=== PATIENT | female | born 1965 | race Caucasian/White ===

== ENCOUNTER → 2016-11-25 14:07 | Outpatient (CLI) | payer OTHER | END | disposition home or self-care (01) | LOC: D.LABREF 14:07 | DX: E03.9 Hypothyroidism, unspecified (principal) ==

== ENCOUNTER → 2020-01-17 08:07 | Outpatient (CLI) | payer OTHER | END | disposition home or self-care (01) | LOC: D.HCCARDIO 08:07 | PROVIDERS: ATTEND Internal Medicine Cardiovascular Disease | DX: I25.10 Atherosclerotic heart disease of native coronary artery without angina pectoris (principal) ==

== ENCOUNTER 2020-02-08 07:04 | Day surgery (SDC) | payer OTHER ==
[~2020-02-08] VITALS: Ht 162.6 cm; Wt 74.3 kg
--- NOTE | ~2020-02-08 | HEMODYNAMI ---
PATIENT:KACI MARTIN MEDICAL RECORD: [id number] : 67 LOCATION:[facility] ADMISSION DATE: 02/08/20 Generatedon:02/08/202010:07 Patient name: KACI MARTIN Patient #: [id number] SSN: [id number] : 1965 Date of study: 02/08/2020 Page: Of Hemodynamic Procedure Report Patient Data Patient Demographics Procedure consent was obtained First Name: KACI Gender: Female Last Name: VERONICA : 1965 Patient #: [id number] Age: 55 year(s) Race: SSN: [id number] Additional ID: [id number] Contact details Address: [address] [place] [address] State: [place] City: [place] Zip code: [address] Past Medical History Performed procedures and imaging results Date Procedure Procedure Results Comments 01/17/2020 Stress testing Positive->Intermediate with SPECT MPI risk Allergies: No known allergies Admission Admission Data Admission Date: 02/08/2020 Admission Time: 7:04 Arrival Date: 02/08/2020 Arrival Time: 9:00 Admit Source: Other Insurance Payor: Private health insurance [facility] #: [id number] Height (in.): 65 BSA: 1.81 (m2) Height (cm.): 165.1 BMI: 26.96 (kg/m2) Weight (lbs.): 162 Weight (kg.): 73.48 Lab Results Lab Result Date: 02/08/2020 Lab Result Time: 0:00 Biochemistry Name Units Result Min Max BUN mg/dl 12 --(-*--)-- 7 18 Creatinine mg/dl 0.8 --(-*--)-- 0.6 1.3 eGFR ml/min 79.15146 *-(----)-- 90 120 NONAFRICAN CBC Name Units Result Min Max Hematocrit % 45.3 --(-*--)-- 42 54 Hemoglobin g/dl 15.4 --(-*--)-- 13.5 17.5 Procedure Procedure Types Cath Procedure Diagnostic Procedure [facility] w/Coronaries Sedation Charges Moderate Sedation up to 15 minutes Procedure Description Procedure Date Procedure Date: 02/08/2020 Procedure Start Time: 9:50 Procedure End Time: 10:06 Procedure Staff Name Function Brian Go MD Performing Physician Roz Navarrete RT Monitor Malina Barnett RT Scrub Rubin Ibrahim RN Nurse Indication Angina Procedure Data Cath Procedure Fluoroscopy Diagnostic fluoroscopy Total fluoroscopy Time: 2.7 time: 2.7 min min Diagnostic fluoroscopy Total fluoroscopy dose: 461 dose: 461 mGy mGy Contrast Material Contrast Material Type Amount (ml) Isovue 370 50 Entry Location Entry Primary Successful Side Size Upsize Upsize Entry Closure Galloway ccessful Closure Location (Fr) 1 (Fr) 2 (Fr) Remarks Device Remarks Radial Right 6 Fr Mechanical artery Short Compression Estimated blood loss: 5 ml Diagnostic catheters Device Type Used For End Catheter Placement DIAGNOSTIC [place] 110cm 5 Procedure Fr catheter ([id number]) Procedure Complications No complications Procedure Medications Medication Administration Route Dosage Oxygen etCO2 Nasal cannula 2 l/min Lidocaine 2% added to field 20 Heparin Flush Bag added to field 2 bags (1000units/500ml NS) 0.9% NaCl I.V. 100 ml/hr Versed I.V. 1 mg Fentanyl I.V. 50 mcg Radial Cocktail I.A. 1 syringe (Verapamil 2mg/Nitro 400mcg/Heparin 1500units) Versed I.V. 1 mg Fentanyl I.V. 50 mcg Versed I.V. 1 mg Hemodynamics Rest BSA: 1.81 (m2) HGB: 15.4 (g/dl) O2 Consumption: Estimated: 171.52 (ml/min) O2 Co nsumption indexed: Estimated:94.76 (ml/min/m) Heart Rate: 65 (bpm) Pressure Samples Time Site Value (mmHg) Purpose Heart Use Rate(bpm) 9:55 LV 178/25,63 Snapshot 72 Gradients Valve Time Site Site Mean SEP/DFP Peak To Heart Use 1 2 (mmHg) (sec/min) Peak Rate (mmHg) (bpm) Aortic 9:56 LV AO 75 Snapshots Pre Cath Intra NCS Post Cath Vital Signs Time Heart Resp SPO2 etCO2 NIBP (mmHg) Rhythm Pain Sedation Rate (ipm) (%) (mmHg) Status Level (bpm) 9:36:28 69 18 97 38.8 180/100(139) NSR 0 (11) 10(A) , No pain 9:40:46 59 19 98 46.3 159/93(141) NSR 0 (11) 10(A) , No pain 9:45:06 63 13 97 21.7 172/86(137) NSR 0 (11) 10(A) , No pain 9:49:30 61 14 94 0 134/79(112) NSR 0 (11) 9(A) , No pain 9:54:44 67 21 97 46.3 127/77(105) NSR 0 (11) 9(A) , No pain 9:59:49 72 12 95 30.6 140/92(100) NSR 0 (11) 10(A) , No pain 10:04:05 78 15 97 42.6 130/80(113) NSR 0 (11) 10(A) , No pain Medications Time Medication Route Dose Verified Delivered Reason Notes Effectiveness by by 9:44:10 Oxygen etCO2 2 l/min Brian Buffie used for Nasal Donavan Ibrahim RN procedure cannula 9:44:16 Lidocaine 2% added 20ml Brian Brian for local to vial Donavan Go MD anesthetic field 9:44:21 Heparin Flush added 2 bags Brian Brian used for Bag to Donavan Go MD procedure (1000units/500ml field NS) 9:44:30 0.9% NaCl I.V. 100 Brian Buffie Per ml/hr Donavan Ibrahim RN physician 9:44:41 Versed I.V. 1 mg Brian Buffie for sedation Donavan Ibrahim RN 9:44:46 Fentanyl I.V. 50 mcg Brian Buffie for sedation Donavan Ibrahim RN 9:48:14 Versed I.V. 1 mg Brian Brian for sedation Donavan Go MD 9:48:18 Fentanyl I.V. 50 mcg Brian Brian for sedation Donavan Go MD 9:53:07 Radial Cocktail I.A. 1 Brian Brian for (Verapamil syringe Donavan Go MD vasodilation 2mg/Nitro 400mcg/Heparin 1500units) 9:55:52 Versed I.V. 1 mg Brian Brian for sedation Donavan Go MD Procedure Log Time Note 8:57:04 Diagnostic Cath Status : Elective 8:57:26 Indication : Angina 8:57:44 Informed consent obtained and on chart 8:58:32 Admit Source: Other 8:58:36 Arrival Date: 02/08/2020 9:00:00 AM 8:58:58 Insurance Payor : Private health insurance 8:59:07 Patient Height : 65 inches 8:59:14 Patient Weight : 162 lbs 8:59:23 Procedure Status Elective Heart Cath (OP). 8:59:26 Time tracking: Regular hours (M-F 7:00 - 5:00) 8:59:31 Plan of Care:Hemodynamics will remain stable., Cardiac rhythm will remain stable., Comfort level will be maintained., Respiratory function will remain adequate., Patient/ family verbilizes understanding of procedure., Procedure tolerated without complication., Recovers from procedure without complications.. 9:15:27 Patient allergic to No known allergies 9:18:00 Rubin Ibrahim RN sent for patient. Start room use. 9:21:35 Lab Result : BUN 12 mg/dl 9:21:35 Lab Result : eGFR NONAFRICAN 79.58413 ml/min 9:21:35 Lab Result : Hemoglobin 15.4 g/dl 9:21:35 Lab Result : Creatinine 0.8 mg/dl 9:21:35 Lab Result : Hematocrit 45.3 % 9:22:13 Lab results completed and on chart. 9:22:18 Stress Test: yes; abnormal inferior 9:22:20 Alarms reviewed by R. N. 9:22:20 Sharps counted by scrub and verified by R.N. 9:22:33 H&P Date Dictated: 01/09/2020 Within 30 days and on chart.. 9:22:34 Pre-procedure instructions explained to patient. 9:22:35 Pre-op teaching completed and patient verbalized understanding. 9:22:37 Family unavailable. 9:22:38 Patient NPO since Midnight. 9:22:44 ACC Patient presents with Stable Angina CCS Anginal Class 2--Slight limitation of ordinary activity. 9:28:03 Patient received from Pre/Post Procedure Room to [facility] 2 Alert and oriented. Tansferred to table in Supine position. 9:28:04 Warm blankets applied, and sean hugger turned on for patient comfort. 9:28:05 Correct patient and procedure confirmed by team. 9:28:06 ECG and BP/O2 sat monitors applied to patient. 9:28:12 Is the patient allergic to Iodine/contrast media? No. 9:28:14 Was the patient premedicated? N/A 9:28:16 Is patient on blood thinner?No 9:28:18 Patient diabetic? Yes. 9:28:19 If diabetic: On Metformin? Yes 9:28:23 If on Metformin: Last Dose? 02/06/2020 9:28:58 Patient not . Patient has had hysterectomy. 9:29:03 ----Pre-sedation anethsthesia assessment.---- 9:29:08 Previous problem with sedation/anesthesia? No ? 9:29:09 Snore? Yes 9:29:10 Sleep apnea? Unknown 9:29:12 Deviated septum? No 9:29:13 Opens mouth fully? Yes 9:29:14 Sticks out tongue? Yes 9:29:15 Airway obstruction? No ? 9:29:17 Dentures? No ? 9:29:20 Patient pain scale 0/10 ?. 9:29:26 IV patent on arrival in left antecubital with 0.9% NaCl at O. 9:29:30 Pre procedure: right dorsailis pedis pulse 2+ Normal; easily identifiable; not easily obliterated 9:29:36 Full Disclosure recording started 9:32:55 Use device set Radial Dx or PCI 9:32:57 ACIST Syringe (87235) opened to sterile field. 9:32:58 Bag Decanter () opened to sterile field. 9:32:58 ACIST Hand Control (31493) opened to sterile field. 9:32:59 ACIST Manifold (20106) opened to sterile field. 9:32:59 Tegaderm 4 x 4 (1626W) opened to sterile field. 9:33:01 Medline Cath Pack ([id number]) opened to sterile field. 9:33:01 MBrace Wrist Support ([id number]) opened to sterile field. 9:33:02 NEEDLE Cook 21G 4cm Radial (L97438) opened to sterile field. 9:33:03 EMERALD Guide Wire (289-915) opened to sterile field. 9:33:03 SHEATH 6FR RAIN (0156565) opened to sterile field. 9:35:20 Vital chart was started 9:35:25 Rhythm: sinus rhythm 9:36:05 Right Radial & Right Groin area was prepped with chlora-prep and draped in sterile fashion 9:36:15 Baseline sample Acquired. 9:38:26 Modified Shamar's test Ulnar < 7 seconds 9:42:08 --------ALL STOP TIME OUT------ :42:08 Final Timeout: patient, procedure, and site verified with staff and physician. All members of the team are in agreement. 9:42:10 Right Radial & Right Groin site verified by team. 9:42:14 Fire Safety Assessment: A--An alcohol-based skin anteseptic being used preoperatively., C--Open oxygen or nitrous oxide is being used., D--An ESU, laser, or fiber-optic light is being used. 9:42:17 Physical assessment completed. ASA score P 2 - A patient with mild systemic disease as per Brian Go MD. 9:42:22 2) 60-89 Mildly reduced kidney function, and other findings (as for stage 1) point to kidney disease. 9:42:25 Maximum allowable contrast dose (3.7 X eGFR X 0.75)219 ml. 9:42:30 Sedation plan: IV Moderate Sedation Medication:Versed, Fentanyl 9:44:10 Oxygen 2 l/min etCO2 Nasal cannula was administered by Rubin Ibrahim RN; used for procedure; Verbal order read back and verified. 9:44:16 Lidocaine 2% 20ml vial added to field was administered by Brian Go MD; for local anesthetic; Verbal order read back and verified. 9:44:21 Heparin Flush Bag (1000units/500ml NS) 2 bags added to field was administered by Brian Go MD; used for procedure; Verbal order read back and verified. 9:44:30 0.9% NaCl 100 ml/hr I.V. was administered by Rubin Ibrahim RN; Per physician; Verbal order read back and verified. 9:44:41 Versed 1 mg I.V. was administered by Rubin Ibrahim RN; for sedation; Verbal order read back and verified. 9:44:46 Fentanyl 50 mcg I.V. was administered by Buffie Ibrahim RN; for sedation; Verbal order read back and verified. 9:48:14 Versed 1 mg I.V. was administered by Brian Go MD; for sedation; Verbal order read back and verified. 9:48:18 Fentanyl 50 mcg I.V. was administered by Brian Go MD; for sedation; Verbal order read back and verified. 9:49:53 Procedure started. 9:50:55 Local anesthetic to right radial artery with Lidocaine 2% by Brian Go MD.INITIAL ACCESS ONLY 9:52:27 A 6 Fr Short sheath was inserted into the Right Radial artery 9:53:07 Radial Cocktail (Verapamil 2mg/Nitro 400mcg/Heparin 1500units) 1 syringe I.A. was administered by Brian Go MD; for vasodilation; Verbal order read back and verified. 9:54:09 A DIAGNOSTIC [place] 110cm 5 Fr catheter ([id number]) was advanced over the wire and used for Procedure. 9:54:22 LV gram done using ERICKSON 9:54:29 Injector settings: Ml/sec: 5, Volume: 15, 9:55:33 LV hemodynamics recorded. 9:55:48 EF : 55 % 9:55:52 Versed 1 mg I.V. was administered by Brian Go MD; for sedation; Verbal order read back and verified. 9:56:27 LCA angiography performed. 9:56:30 Injector settings: Ml/sec: 3, Volume: 6, 9:57:35 RCA angiography performed. 9:57:38 Injector settings: Ml/sec: 3, Volume: 6, 9:58:53 ACCDominant side:Co-Dominant 10:01:14 Catheter removed. 10:01:16 ZEPHYR REGULAR TR BAND (261586) opened to sterile field. 10:01:24 Sheath removed intact; hemostasis achieved with Mechanical Compression to the Right Radial artery. 10:01:26 Procedure ended.(Physican Out) 10:02:20 Fluoroscopy time 02.70 minutes. 10:02:23 Fluoroscopy dose: 461 mGy 10:02:23 Flurop Dose total: 461 10:02:28 Dose Area Product 92251 mGy/cm. 10:02:31 Contrast amount:Isovue 370 50ml. 10:02:33 Maximum allowable dose exceeded? No. 10:02:34 Sharps counted by scrub and verified by R.N. 10:02:36 Ophelia band inflated with 10cc of air. 10:02:38 Post Procedure Pulses reassessed and unchanged 10:02:41 Post procedure: right dorsailis pedis pulse 2+ Normal; easily identifiable; not easily obliterated. 10:02:43 Post-procedure physical assessment completed. ASA score P 2 - A patient with mild systemic disease as per Brian Go MD. 10:02:46 Post procedure rhythm: unchanged. 10:02:48 Estimated blood loss: 5 ml 10:02:49 Post procedure instruction explained to patient.Patient verbalizes understanding. 10:02:50 Patient needs reinforcement of post procedure teaching. 10:03:04 Procedure type changed to Cath procedure, Diagnostic procedure, LHC, [facility] w/Coronaries, Sedation Charges, Moderate Sedation up to 15 minutes 10:03:26 Procedure and supply charges have been captured, reviewed, submitted and are correct. 10:03:29 Procedure Complication : No complications 10:03:33 [facility] Findings: MVD- CABG consult 10:03:36 Operative report dictated upon procedure completion. 10:03:37 See physician's report for complete and final results. 10:03:38 Report given to Pre/Post Procedure Room. 10:03:40 Patient transfered to Pre/Post Procedure Room with Stretcher. 10:06:10 Vital chart was stopped 10:06:13 Procedure ended. 10:06:13 Full Disclosure recording stopped 10:06:22 End room use (Document Last) 10:06:37 End room use (Document Last) 10:06:52 End room use (Document Last) Device Usage Item Name Manufacture Quantity Catalog Hospital Part Current [facility] l Lot# / Number Charge Number Stock Stock Serial# Code ACIST Acist 1 77978 670105 023581 834843 20 Syringe Medical (07096) Systems Inc Bag Microtek 1 346067 00320 367781 5 Decanter Medical Inc. () ACIST Hand Acist 1 74690 254395 669799 512623 5 Control Medical (65979) Systems Inc ACIST Acist 1 30028 974358 537999 078647 5 Manifold Medical (49120) Systems Inc Tegaderm 4 3M 1 1626W 136476 037177 355333 5 x 4 (1626W) Medline Medline 1 [id number] 671806 09863 461911 5 Cath Pack ([id number]) MBrace Advanced 1 140-0250-00 336726 82036 122675 5 Wrist Vascular Support Dynamics (924596506) NEEDLE Cook Cook Medical 1 K92633 357029 948896 551094 5 21G 4cm Radial (Z54392) EMERALD Cardinal 1 502-455 278155 271458 811265 5 Guide Wire Health (502455) SHEATH 6FR Cardinal 1 3167640 938555 1596835 384784 5 RAIN Health (9210588) DIAGNOSTIC Terumo 1 40-5686 390938 860452 412671 5 [place] 110cm 5 Fr catheter (084195) ZEPHYR Cardinal 1 136944 487279 8271298 799291 5 REGULAR TR Health BAND (831721) Signature Audit [place] Stage Time Signature Unsigned Intra-Procedure 02/08/2020 Roz Navarrete 10:06:37 AM RT(R) Intra-Procedure 02/08/2020 Rubin Ibrahim RN 10:06:52 AM Intra-Procedure 02/08/2020 Brian Go MD 10:07:10 AM Signatures Performing Physician : Signature : Brian Go MD Date : Time : Monitor : Roz Navarrete Signature : RT Date : Time : Nurse : Rubin Ibrahim RN Signature : Date : Time : [facility] [address] [place] [address]
[2020-02-08] MEDS ORDERED: LEVOTHYROXINE112 MCG PO (07:38)
[2020-02-08] MEDS ORDERED: COREG6.25 MG PO (07:39)
[2020-02-08] MEDS ORDERED: LIPITOR80 MG PO (07:39)
[2020-02-08] MEDS ORDERED: GLUCOPHAGE1000 MG PO (07:39)
[2020-02-08] MEDS ORDERED: LISINOPRIL40 MG PO (07:40)
[2020-02-08] MEDS ORDERED: JARDIANCE25 MG PO (07:41)
[2020-02-08] MEDS ORDERED: K-DUR20 MEQ PO (07:41)
[2020-02-08] MEDS ORDERED: LOW DOSE ASPIRI81 M1 PO (07:41)
[2020-02-08] MEDS ORDERED: CO Q-10100 MG PO (07:42)
[2020-02-08 07:57] VITALS: BP 170/90; Ht 162.6 cm; Wt 74.3 kg
[2020-02-08 07:57] LABS: BASOPHILS 0.5 % (0-2); HEMATOCRIT 45.3 % (36.0-48.0); HEMOGLOBIN 15.4 g/dL (12-16); IMMATURE GRANULOCYTES 0.5 % (0-5); LYMPHOCYTES 25.8 % (15-50); MCH 30.6 pg (26.0-34.0); MCV 89.9 fL (80.0-100.0); MEAN PLATELET VOLUME 9.2 fL (7.4-10.4); NEUTROPHILS 61.2 % (40-80); PLATELET COUNT 288 10x3/uL (130-400); RBC 5.04 10x6/uL (4.00-5.40); RDW 13.2 % (11.5-14.5); WBC 5.6 10x3/uL (4.8-10.8)
[2020-02-08 08:09] LABS: ALT (SGPT) 35 U/L (10-68); CALC OSMOLALITY 283 mosm/kg (275-300); CALCIUM 9.1 mg/dL (8.5-10.1); CARBON DIOXIDE 29.3 mmol/L (21.0-32.0); CHLORIDE - SERUM 105 mmol/L (98-107); CHOL - HDL RATIO 3.8 ratio (2.3-4.1); CHOLESTEROL, TOTAL 148 mg/dL (0-200); CREATININE - SERUM 0.8 mg/dL (0.6-1.3); GLUCOSE 115 mg/dL (74-106); HDL CHOLESTEROL 39 mg/dL (32-96); LDL CHOLESTEROL 86 mg/dL (0-100); LDL-HDL RATIO 2.2 ratio (1.5-3.5); POTASSIUM - SERUM 4.1 mmol/L (3.5-5.1); SODIUM 142 mmol/L (136-145); TRIGLYCERIDE 115 mg/dL (30-200); UREA NITROGEN 12 mg/dL (7-18); eGFR NON AFRICAN AMERICAN 79 mL/min (90-120)
--- NOTE | 2020-02-08 10:15 | NUR ---
PT ARRIVED BY STRETCHER. PLACED ON MONITORS. ASSESSMENT COMPLETED. VSS AT THIS TIME. CALL LIGHT WITHIN REACH. FAMILY AT BEDSIDE.
--- NOTE | 2020-02-08 10:30 | NUR ---
RIGHT WRIST Z BAND IN PLACE. NO BLEEDING/HEMATOMA NOTED. CALL LIGHT WITHIN REACH. VSS AT THIS TIME. FAMILY AT BEDSIDE.
--- NOTE | 2020-02-08 11:07 | NUR ---
2cc OF AIR REMOVED FROM Z BAND. NO BLEEDING/HEMATOMA NOTED. CALL LIGHT WITHIN REACH. VSS AT THIS TIME.
--- NOTE | 2020-02-08 11:20 | NUR ---
3CC OF AIR REMOVED FROM Z BAND. NO BLEEDING/HEMATOMA NOTED. TOLERATING WELL. VSS. CALL LIGHT WITHIN REACH. FAMILY AT BEDSIDE.
--- NOTE | 2020-02-08 11:30 | NUR ---
5cc OF AIR REMOVED FROM Z BAND. TOLERATED WELL. VSS AT THIS TIME. CALL LIGHT WITHIN REACH. NO NEEDS AT THIS TIME. TOLERATING DRINK, BUT WANTS TO EAT AFTER SHE LEAVES THE HOSPITAL. DENIES NAUSEA/PAIN.
--- NOTE | 2020-02-08 11:45 | NUR ---
Z BAND REMOVED AND DRESSING APPLIED. TOLERATED WELL. VSS AT THIS TIME. PIV D/C'D WITH CATH TIP INTACT. PT INSTRUCTED TO GET UP AND DRESSED AT THIS TIME. NO ASSISTANCE NEEDED. FAMILY AT BEDSIDE TO ASSIST.
--- NOTE | 2020-02-08 12:00 | NUR ---
DISCUSSED DISCHARGE INSTRUCTIONS WITH PT AND PT'S FAMILY. THEY VOICED UNDERSTANDING. PT AMBULATED TO RESTROOM AND VOIDED WITHOUT DIFFICULTY. STEADY GAIT NOTED.
--- NOTE | 2020-02-08 12:15 | NUR ---
RIGHT WRIST DRESSING C/D/I. NO S/S OF HEMATOMA NOTED. PT TAKEN DOWN TO VEHICLE BY WHEELCHAIR. NO S/S OF DISTRESS NOTED. ALL BELONGINGS AND PAPERWORK IN HAND. WAYNE AKERS CAME BY AND GAVE PT A FOLLOW UP APPT WITH DR. MURPHY TO DISCUSS CABG.
== END 2020-02-08 12:15 | disposition home or self-care (01) ==
LOC: D.CATH 07:04
PROVIDERS: ATTEND Internal Medicine Cardiovascular Disease
DX: I25.119 Atherosclerotic heart disease of native coronary artery with unspecified angina pectoris (principal); R94.39 Abnormal result of other cardiovascular function study; I10 Essential (primary) hypertension; R53.83 Other fatigue; E11.9 Type 2 diabetes mellitus without complications

== ENCOUNTER 2020-02-20 08:19 | Inpatient (IN) | payer OTHER ==
[~2020-02-20] VITALS: Ht 162.6 cm; Wt 71.1 kg
[~2020-02-20 08:19] MED LIST: CO Q-10100 MG PO; COREG6.25 MG PO; GLUCOPHAGE1000 MG PO; JARDIANCE25 MG PO; K-DUR20 MEQ PO; LEVOTHYROXINE112 MCG PO; LIPITOR80 MG PO; LISINOPRIL40 MG PO; LOW DOSE ASPIRI81 M1 PO
[2020-02-20 09:39] LABS: BASOPHILS 0.6 % (0-2); EOSINOPHILS 5.2 % (0-7); HEMATOCRIT 45.6 % (36.0-48.0); HEMOGLOBIN 15.5 g/dL (12-16); IMMATURE GRANULOCYTES 1.3 % (0-5); LYMPHOCYTES 26.9 % (15-50); MCH 30.6 pg (26.0-34.0); MCV 89.9 fL (80.0-100.0); MEAN PLATELET VOLUME 9.3 fL (7.4-10.4); MONOCYTES 5.6 % (2-11); NEUTROPHILS 60.4 % (40-80); PLATELET COUNT 331 10x3/uL (130-400); RBC 5.07 10x6/uL (4.00-5.40); RDW 12.8 % (11.5-14.5); WBC 4.8 10x3/uL (4.8-10.8)
[2020-02-20 09:55] LABS: BILIRUBIN NEGATIVE (NEGATIVE); KETONE NEGATIVE (NEGATIVE); NITRITE NEGATIVE (NEGATIVE); UROBILINOGEN NORMAL (NORMAL)
[2020-02-20 10:01] LABS: ALKALINE PHOSPHATASE 84 U/L (30-120); ALT (SGPT) 21 U/L (10-68); BILIRUBIN - TOTAL 0.48 mg/dL (0.2-1.3); CALC OSMOLALITY 284 mosm/kg (275-300); CALCIUM 9.2 mg/dL (8.5-10.1); CARBON DIOXIDE 28.6 mmol/L (21.0-32.0); CHLORIDE - SERUM 103 mmol/L (98-107); CHOLESTEROL, TOTAL 120 mg/dL (0-200); CREATININE - SERUM 0.8 mg/dL (0.6-1.3); PHOSPHOROUS 4.1 mg/dL (2.5-4.9); POTASSIUM - SERUM 3.8 mmol/L (3.5-5.1); PROTEIN - SERUM 7.8 g/dL (6.4-8.2); SODIUM 141 mmol/L (136-145); T4 THYROXIN - FREE 1.61 ng/dL (0.76-1.46); THYROID STIMULATING HORMONE 0.17 uIU/mL (0.36-3.74); UREA NITROGEN 13 mg/dL (7-18); URIC ACID 4.4 mg/dL (2.6-7.2); eGFR NON AFRICAN AMERICAN 79 mL/min (90-120)
[2020-02-20 10:02] LABS: GLUCOSE 169 mg/dL (74-106)
[2020-02-20 10:18] LABS: APTT 28.2 SECONDS (22.8-39.4); INR 0.96 (0.85-1.17); PROTIME 12.7 SECONDS (11.6-15.0)
[2020-02-22] VITALS (37 sets, daily range): BP systolic 94–170; BP diastolic 58–90; BMI 27.5; BMI 26.5
--- NOTE | 2020-02-22 12:30 | NUR ---
Arrived to unit around 1217 via bed. Connected to monitor worker and vent AC 15/550/100/5. ETT size 7.5 22 lip line left. Midsternal incision with dressing c/d/i. Subternal CT x 2 y'd together. Pancho drain in place. Tpm wires connected. RLE harvest sites with coban dressing. RIJ cvl with plasmolyte at 100ml/hr. VSS. Robins catheter in place with clear yellow urine. Bilateral wrist restraints applied upon arrival per order. CT connected to 20cm suction. No air leak noted. Right radial dinaa in place. AMY'S and SCD'S on LLE. Safety measures in place. Nurse at bedside for one on one monitoring.
--- NOTE | 2020-02-22 13:32 | NUR ---
SIMV 15/03/18
--- NOTE | 2020-02-22 13:41 | NUR ---
Cadiology paged at this time. Waiting armed custom protection officer back.
--- NOTE | 2020-02-22 13:47 | NUR ---
DECREASED RR TO 12
--- NOTE | 2020-02-22 14:27 | NUR ---
DECREASED RR TO 8
--- NOTE | 2020-02-22 14:46 | NUR ---
DECREASE RR TO 6
--- NOTE | 2020-02-22 14:59 | NUR ---
Placed on cpap trial at this time by respiratory. Fio2 40%. Pt opens eyes and follows commands. Nitroglycerin is off at this time. BP 124/76, Hr 78. Will continue to monitor closely.
--- NOTE | 2020-02-22 14:59 | NUR ---
CPAP 10/5
--- NOTE | 2020-02-22 16:09 | NUR ---
ABG results reported to Dr. Baxter. Okay to extubate. Did not want base deficit treated at this time.
--- NOTE | 2020-02-22 16:26 | NUR ---
Extubated at 1615 and placed on 2L O2 via NC.
--- NOTE | 2020-02-22 16:39 | NUR ---
EXTUBATED @ 1615 TO 2L NC
--- NOTE | 2020-02-22 17:25 | NUR ---
Intructed pt on how to use insentive spirometer. Pulls between 250-500. Intructed pt to use insentive spirometer 10 repetitions every hour.
--- NOTE | 2020-02-22 19:00 | NUR ---
REPORT RECEIVED. PT AAOX4. NO ACUTE DISTRESS NOTED. ASSESSMENT COMPLETED, SEE FLOWSHEET. RT IJ CVL INFUSING, SEE IV FLOWSHEET. WILL CONTINUE TO MONITOR.
--- NOTE | 2020-02-22 21:00 | NUR ---
PT FAMILY MEMBER AT BEDSIDE.
[2020-02-23] VITALS (24 sets, daily range): BP systolic 101–137; BP diastolic 62–81
--- NOTE | 2020-02-23 03:30 | NUR ---
PT DANGLED ON SIDE OF BED. INCREASED DRAINAGE IN CT AND JOVANNY DRAIN NOTED. PT TOLERATED WELL.
--- NOTE | 2020-02-23 04:48 | NUR ---
CHG BATH GIVEN.
[2020-02-23 06:13] LABS: HEMATOCRIT 39.6 % (36.0-48.0); HEMOGLOBIN 13.2 g/dL (12-16); MCH 30.3 pg (26.0-34.0); MCHC 33.3 g/dL (31.0-37.0); MCV 90.8 fL (80.0-100.0); RBC 4.36 10x6/uL (4.00-5.40); RDW 13.1 % (11.5-14.5)
[2020-02-23 06:32] LABS: ALBUMIN 2.9 g/dL (3.4-5.0); ALKALINE PHOSPHATASE 47 U/L (30-120); ALT (SGPT) 20 U/L (10-68); BILIRUBIN - TOTAL 0.48 mg/dL (0.2-1.3); CALC OSMOLALITY 277 mosm/kg (275-300); CALCIUM 7.5 mg/dL (8.5-10.1); CARBON DIOXIDE 19.3 mmol/L (21.0-32.0); CHLORIDE - SERUM 106 mmol/L (98-107); CREATININE - SERUM 0.7 mg/dL (0.6-1.3); POTASSIUM - SERUM 4.3 mmol/L (3.5-5.1); PROTEIN - SERUM 5.7 g/dL (6.4-8.2); SODIUM 140 mmol/L (136-145); UREA NITROGEN 7 mg/dL (7-18); eGFR NON AFRICAN AMERICAN > 90 mL/min (90-120)
[2020-02-23 06:34] LABS: GLUCOSE 120 mg/dL (74-106)
--- NOTE | 2020-02-23 08:55 | OP ---
PATIENT NAME: KACI MARTIN MEDICAL RECORD: [id number] :67 LOCATION:[facility] ADMISSION DATE:02/22/20 SURGEON: RICHARD MURPYH MD DATE OF OPERATION: 02/22/2020 SURGEON: Richard Murphy MD PROCEDURE PERFORMED: 1. Coronary bypass graft times 3 (left internal mammary to LAD, reverse saphenous vein graft from aorta to obtuse marginal, aorta to right coronary). 2. Endoscopic saphenous vein harvest. PREOPERATIVE DIAGNOSES: Coronary artery disease with LAD in-stent restenosis and severe right coronary artery stenosis with unstable angina. POSTOPERATIVE DIAGNOSES: Coronary artery disease with LAD in-stent restenosis and severe right coronary artery stenosis with unstable angina. ANESTHESIA: General endotracheal anesthesia. ESTIMATED BLOOD LOSS: Total cardiopulmonary bypass with Cell Saver retransfusion. COMPLICATIONS: None. SPECIMENS: None. CONDITION: Stable. DISPOSITION: CVICU. OPERATIVE FINDINGS: 1. Small left internal mammary artery 2 mm, but with good flow. The LAD had severe disease beyond the stent and beyond the bifurcation was anastomosed in the mid distal vessel 1.5 mm with severe disease. Good Doppler signal after anastomosis and after reversal of heparin. 2. Obtuse marginal large 3.0 mm vessel with moderate plaque. 3. Right coronary 2.5 mm with severe plaque. OPERATIVE INDICATION: Coronary artery disease and in-stent restenosis. PROCEDURE IN DETAIL: The patient was brought to the operating suite. General anesthesia was obtained. The patient was prepped and draped. Greater saphenous vein was harvested endoscopically from the right lower extremity. Side branches were divided with electrocautery. Vessel was ligated proximal and distally and removed. Side branches were tied. Leg was irrigated and closed in 2 layers. Mediastinotomy incision was made. Subcutaneous tissue was divided with electrocautery. Sternum was divided with a saw. Left hemisternum was elevated. Left pleural cavity was entered. Left internal mammary artery and vein were taken down as a pedicle graft. Sterile retractor was placed. Pericardium was opened. Heparin was given. Aorta was cannulated. Dual-stage venous cannula was inserted. The patient was placed on cardiopulmonary bypass. Internal mammary was made ready for anastomosis. Sites for distal anastomosis were selected. The patient's temperature drifted downwardly. Antegrade cardioplegia OPERATIVE REPORT [id number] MARTIN,KACI SUGAR cannula was inserted. Cross-clamp was placed. Cardioplegia was given antegrade and this was repeated at 15- to 20-minute intervals including down the completed vein grafts. Distal anastomosis was performed in standard technique, proximal anastomosis in single cross-clamp technique. The patient rewarmed. Cross-clamp removed. Aortic root de-aired. Proximal anastomosis tied down. Vein graft de-aired. Flow restored. Proximal and distal anastomotic sites inspected for bleeding. Thorough irrigation was undertaken. Grafts lay appropriately. The patient was decannulated. Cannula sites were oversewn. Protamine was given. A drain was placed in the mediastinum and left pleural cavity. Pericardial valve was loosely reapproximated. Protamine was given. ACT was normal. Left chest was evacuated and irrigated. Internal mammary harvest site was without bleeding. Sternum was closed. Fascia was closed. Subcutaneous tissue was closed. Skin was closed. Dermabond was placed. Needle and sponge counts were reported as correct. The patient was taken to ICU in stable condition. NTS:[id number] Voice Confirmation ID: [id number] DOCUMENT ID: [id number] RICHARD MURPHY MD at 0855 CC: ARMANI SMALLWOOD DO and PRUDENCIO BREWER M.D. [id number] DICTATION DATE: 02/22/20 1259 SCISSORS SHARPENER: 02/22/20 1833 ADM IN [facility] [address] [place] [address]
--- NOTE | 2020-02-23 14:14 | NUR ---
1025: R RADIAL ARTERIAL LINE DC'D. MANUAL PRESSURE HELD X 2 MIN. DRESSED WITH 2X2.
--- NOTE | 2020-02-23 14:30 | NUR ---
MEDISTINAL CHEST TUBES DC'D BY DR. MURPHY.
[2020-02-24] VITALS (23 sets, daily range): BP systolic 100–152; BP diastolic 59–89
--- NOTE | 2020-02-24 05:30 | NUR ---
PT ASSISTED TO CHAIR, NO ACUTE DISTRESS NOTED.
[2020-02-24 05:50] LABS: HEMATOCRIT 37.9 % (36.0-48.0); HEMOGLOBIN 12.6 g/dL (12-16); MCH 29.9 pg (26.0-34.0); MCHC 33.2 g/dL (31.0-37.0); MCV 89.8 fL (80.0-100.0); RBC 4.22 10x6/uL (4.00-5.40); RDW 13.3 % (11.5-14.5); WBC 20.4 10x3/uL (4.8-10.8)
[2020-02-24 06:09] LABS: ALBUMIN 2.6 g/dL (3.4-5.0); ALKALINE PHOSPHATASE 55 U/L (30-120); ALT (SGPT) 23 U/L (10-68); BILIRUBIN - TOTAL 0.71 mg/dL (0.2-1.3); CALC OSMOLALITY 265 mosm/kg (275-300); CALCIUM 8.4 mg/dL (8.5-10.1); CARBON DIOXIDE 19.3 mmol/L (21.0-32.0); CHLORIDE - SERUM 99 mmol/L (98-107); CREATININE - SERUM 0.5 mg/dL (0.6-1.3); GLUCOSE 118 mg/dL (74-106); POTASSIUM - SERUM 3.8 mmol/L (3.5-5.1); SODIUM 133 mmol/L (136-145); UREA NITROGEN 9 mg/dL (7-18); eGFR NON AFRICAN AMERICAN > 90 mL/min (90-120)
--- NOTE | 2020-02-24 10:59 | TEE ---
PATIENT:KACI MARTIN MEDICAL RECORD: [id number] LOCATION:[place] [address] AGE OF PATIENT: 55 ADMISSION DATE: 02/22/20 SEX: F REFERRING PHYSICIAN: INTERPRETING PHYSICIAN: JULI PARADA MD TRANSESOPHAGEAL ECHOCARDIOGRAM Date: 02/22/20 GITA CHARGE Y INDICATIONS: CABG PREMEDICATIONS: PATIENT'S RESPONSE PROCEDURE DOPPLER MEASUREMENTS: LVIT LA PA RA LVOT RVOT Asc. Ao AV Gradient Peak AV Mean AV Area MV Gradient Peak MV Mean MV Area INTERPRETATION: Doppler: 2-D: COLOR FLOW DOPPLER NORMAL SALINE STUDY: MISCELLANOUS: DIAGNOSIS: PLAN: Edger Runner:3 Dr. Cha Research Quality Assurance Analyst: Justice COOLEY COMMENTS: DATE OF SERVICE: 02/22/2020 PROCEDURE: Intraoperative GITA. Preop, normal LV wall motion and wall thickening. EF normal at 55%. Aortic valve is tricuspid with good valve excursion. Left atrium appears normal. Mitral valve appears normal. Trace to mild MR. Postoperatively, good wall motion and wall thickening of all cardiac segments with normal LV function. Aortic valve with continued good valve excursion with no significant AI. Mitral TRANSESOPHAGEAL ECHOCARDIOGRAM REPORT [id number] MANDIE MATRIN valve appears normal. Trace to mild MR. TRANSINT:[id number] Voice Confirmation ID: [id number] DOCUMENT ID: [id number] at 1059 CC: [id number] DICTATION DATE: 02/22/20 1447 SILVERING APPLICATOR: 02/22/20 1525 ADM IN [place] [id number] [place] [address]
--- NOTE | 2020-02-24 11:27 | NUR ---
DR MURPHY IN UNIT-REVIEWED CHART-ORDER RECIEVED AT THIS TIME -PT REMAINS UP IN CHAIR
--- NOTE | 2020-02-24 14:20 | NUR ---
PT STOOD UP BY CHAIR TO RELIEVE BUTTOCK DISCOMFORT
--- NOTE | 2020-02-24 17:02 | NUR ---
1615-COMPLETE AM CARE DONE AND TOLERATED WELL BY PT-KIRK CATH D/C DIRECTED
--- NOTE | 2020-02-24 18:00 | NUR ---
DR MURPHY NOTIFIED OF ST 140-ORDER RECIEVED AND NOTED
--- NOTE | 2020-02-24 18:46 | NUR ---
DR MURPHY NOTIFIED OF UNCAF-ORDERS RECIEVED AND NOTED CORDARONE BOLUS STARTED ORDERED
--- NOTE | 2020-02-24 19:00 | NUR ---
PT ASSESSMENT COMPLETED AT THIS TIME, NO CHANGES NOTED FROM NURSE REPORT, PT IS AAOX4 PT DENIES COMPLAINTS AT THIS TIME, CM SHOWS A-FIB RVR RATE 120'S-140'S PT IS ON AMIODARONE DRIP WITHOUT PROBLEMS, WILL MONITOR FOR CHANGES
--- NOTE | 2020-02-24 21:00 | NUR ---
PT RESTING IN BED WATCHING TV, NO DISTRESS NOTED, PT VOICES NO COMPLAINTS OR CONCERNS, PT ASKING ABOUT HER HR, CM STILL SHOWS A-FIB RVR RATES OF 120'S TO 140, WILL MONITOR FOR CHANGES
--- NOTE | 2020-02-24 21:47 | NUR ---
CM SHOWS PATIENT IN SR RATE OF 99, WILL MONITOR FOR CHANGES
--- NOTE | 2020-02-24 23:00 | NUR ---
PT REASSESSMENT COMPLETED AT THIS TIME, PT RESTING WITH EYES CLOSED, CM SHOWS ST 107 HR, NO OTHER CHANGES NOTED FROM PREVIOUS EXAM
[2020-02-25] VITALS (23 sets, daily range): BP systolic 108–149; BP diastolic 75–92
--- NOTE | 2020-02-25 01:00 | NUR ---
PT RESTING WITH EYES CLOSED, RESP EVEN AND NON LABORED, VSS
--- NOTE | 2020-02-25 03:00 | NUR ---
PT REASSESSMENT COMPLETED AT THIS TIME, NO CHANGES NOTED FROM PREVIOUS EXAM
--- NOTE | 2020-02-25 05:00 | NUR ---
PT RESTING IN BED, AWAKES TO NURSE ENTERY, NO DISTRESS NOTED
[2020-02-25 06:09] LABS: HEMATOCRIT 33.7 % (36.0-48.0); HEMOGLOBIN 11.7 g/dL (12-16); MCH 30.4 pg (26.0-34.0); MCHC 34.7 g/dL (31.0-37.0); MEAN PLATELET VOLUME 8.8 fL (7.4-10.4); RBC 3.85 10x6/uL (4.00-5.40); RDW 13.4 % (11.5-14.5); WBC 16.7 10x3/uL (4.8-10.8)
[2020-02-25 06:11] LABS: MCV 87.5 fL (80.0-100.0)
[2020-02-25 06:47] LABS: ALBUMIN 2.4 g/dL (3.4-5.0); ALKALINE PHOSPHATASE 61 U/L (30-120); ALT (SGPT) 18 U/L (10-68); BILIRUBIN - TOTAL 0.43 mg/dL (0.2-1.3); CALC OSMOLALITY 267 mosm/kg (275-300); CALCIUM 8.3 mg/dL (8.5-10.1); CARBON DIOXIDE 20.7 mmol/L (21.0-32.0); CHLORIDE - SERUM 100 mmol/L (98-107); GLUCOSE 118 mg/dL (74-106); POTASSIUM - SERUM 3.7 mmol/L (3.5-5.1); SODIUM 134 mmol/L (136-145); UREA NITROGEN 11 mg/dL (7-18)
[2020-02-25 06:51] LABS: CREATININE - SERUM 0.7 mg/dL (0.6-1.3); eGFR NON AFRICAN AMERICAN > 90 mL/min (90-120)
--- NOTE | 2020-02-25 14:23 | NUR ---
0700-RECIEVED AWAKE -UP IN CHAIR 0830-ASSISTED TO RESTROOM- 0930-PHYSICAL THERAPY ASSISTED WITH AMBULATION-PORT TELEMETRY-ST 1030-DR MURPHY AT BEDSIDE-STATUS REPORT-ORDER RECIEVED AND NOTED 1330-PHYSICAL THERAPY AT BEDSIDE 1430-ENCOURAGED INCENTIVE
--- NOTE | 2020-02-25 19:00 | NUR ---
REPORT RECIEVED, ASSUMED CARE OF PATIENT. ASSESSMENT COMPLETE, PLEASE SEE FLOW SHEETS FOR DETAILS. HEMODYNAMICALLY STABLE AT THIS TIME, WILL CONTINUE PLAN OF CARE.
[2020-02-26] VITALS (23 sets, daily range): BP systolic 94–150; BP diastolic 63–93; Ht 162.6 cm; Wt 71.1 kg
--- NOTE | 2020-02-26 05:38 | NUR ---
0430 DRESSING CHANGE PROVIDED PER ORDERS FOR JOVANNY DRAIN AND TPM WIRE SITE.
[2020-02-26 06:21] LABS: HEMATOCRIT 32.5 % (36.0-48.0); MCH 29.9 pg (26.0-34.0); MCHC 33.8 g/dL (31.0-37.0); MCV 88.3 fL (80.0-100.0); RBC 3.68 10x6/uL (4.00-5.40); RDW 13.5 % (11.5-14.5)
[2020-02-26 06:23] LABS: WBC 9.7 10x3/uL (4.8-10.8)
[2020-02-26 06:36] LABS: ALBUMIN 2.3 g/dL (3.4-5.0); ALKALINE PHOSPHATASE 65 U/L (30-120); ALT (SGPT) 19 U/L (10-68); BILIRUBIN - TOTAL 0.39 mg/dL (0.2-1.3); CALC OSMOLALITY 269 mosm/kg (275-300); CALCIUM 8.2 mg/dL (8.5-10.1); CARBON DIOXIDE 25.1 mmol/L (21.0-32.0); CHLORIDE - SERUM 101 mmol/L (98-107); CREATININE - SERUM 0.6 mg/dL (0.6-1.3); GLUCOSE 127 mg/dL (74-106); POTASSIUM - SERUM 3.6 mmol/L (3.5-5.1); PROTEIN - SERUM 6.2 g/dL (6.4-8.2); SODIUM 134 mmol/L (136-145); UREA NITROGEN 12 mg/dL (7-18); eGFR NON AFRICAN AMERICAN > 90 mL/min (90-120)
--- NOTE | 2020-02-26 07:30 | NUR ---
REPORT RECEIVED. PT ALERT AND ORIENTED AND SITTING UP IN CHAIR. SHE IS ON ROOM AIR. HAS A JOVANNY DRAIN. MIDSTERNAL INCISION WITH DRESSING. SUBSTERNAL INCISIONS WITH DRESSINGS. RIGHT LEG HARVEST SITE. HAS A RIGHT IJ CENTRAL LINE WITH AMIODARONE INFUSING AT 0.5 MCG. PT IS IN AND OUT OF UNCONTROLLED AFIB. HR CURRENTLY 99. WILL MONITOR.
--- NOTE | 2020-02-26 11:27 | NUR ---
JOVANNY DRAIN REMOVED PER DR MURPHY. AMIO DRIP STOPPED AND RIGHT IJ REMOVED. PRESSURE DRESSING APPLIED. TOLERATED WELL. WILL CONTINUE TO MONITOR.
--- NOTE | 2020-02-26 14:52 | NUR ---
PIV PLACED TO RIGHT AC. SALINE LOCK.
[2020-02-27] VITALS (14 sets, daily range): BP systolic 109–148; BP diastolic 63–85
[2020-02-27 04:47] LABS: HEMATOCRIT 31.4 % (36.0-48.0); HEMOGLOBIN 10.4 g/dL (12-16); MCH 29.7 pg (26.0-34.0); MCHC 33.1 g/dL (31.0-37.0); MCV 89.7 fL (80.0-100.0); MEAN PLATELET VOLUME 8.7 fL (7.4-10.4); RBC 3.5 10x6/uL (4.00-5.40); RDW 13.6 % (11.5-14.5); WBC 7.9 10x3/uL (4.8-10.8)
[2020-02-27 05:05] LABS: ALBUMIN 2.2 g/dL (3.4-5.0); ALKALINE PHOSPHATASE 64 U/L (30-120); ALT (SGPT) 15 U/L (10-68); BILIRUBIN - TOTAL 0.34 mg/dL (0.2-1.3); CALC OSMOLALITY 271 mosm/kg (275-300); CALCIUM 8.1 mg/dL (8.5-10.1); CARBON DIOXIDE 27.5 mmol/L (21.0-32.0); CHLORIDE - SERUM 103 mmol/L (98-107); CREATININE - SERUM 0.7 mg/dL (0.6-1.3); GLUCOSE 116 mg/dL (74-106); POTASSIUM - SERUM 3.9 mmol/L (3.5-5.1); PROTEIN - SERUM 6.2 g/dL (6.4-8.2); SODIUM 136 mmol/L (136-145); UREA NITROGEN 10 mg/dL (7-18); eGFR NON AFRICAN AMERICAN > 90 mL/min (90-120)
--- NOTE | 2020-02-27 06:22 | NUR ---
PT. UP TO CHAIR. NO COMPLAINTS AT THIS TIME. ABLE TO HAVE A BM OVERNIGHT. MIDSTERNAL DRESSING C/D/I. CALL LIGHT IS WITHIN REACH, WILL CONTINUE TO MONITOR
--- NOTE | 2020-02-27 08:13 | NUR ---
PT HAD SMALL BM. NO OTHER COMPLAINTS AT THIS TIME.
[2020-02-27] MEDS ORDERED: PLAVIX75 MG PO (09:42)
[2020-02-27] MEDS ORDERED: AMIODARONE HCL200 MG PO (09:43)
[2020-02-27] MEDS ORDERED: PERCOCET 5-3251 TAB PO (09:48)
--- NOTE | 2020-03-01 21:44 | MORECARE ---
CASE MANAGEMENT DISCHARGE SUMMARY PATIENT: KACI MARTIN UNIT: [id number] ADM DATE: 02/22/20 AGE: 55 : 67 SEX: F ROOM/BED: [facility] AUTHOR: AGUEDA,DOC PHYSICIAN: REFERRING PHYSICIAN: VALERIO MURPHY MD DATE OF SERVICE: 03/01/20 Discharge Plan Patient Name: KACI MARTIN Facility: [facility]:[place] : 1965 Planned Disposition: Home Anticipated Discharge Date: Discharge Date: 02/27/2020 Expected LOS: Initial Reviewer: [email or web address] Initial Review Date: 02/22/2020 Generated: 03/01/20 10:43 pm Comments DCP- Discharge Planning Updated by [email or web address]: Feli Armstrong on 03/01/20 8:[address] LATE ENTRY 02/27/20 Patient Name: KACI MARTIN Admission Status: Urgent Accout number: [id number] Admission Date: 02-22-2020 : 1965 Admission Diagnosis: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 CM educated patient on the CM role and verbal consent given by patient to complete assessment. Patient lives at home with family. Patient is independent. At discharge patient plans to return home and feels this is a safe discharge. CM discussed availability of home health, rehab services, and medical equipment. Patient will have family to transport home. Patient denied known discharge needs at this time. CM will continue to follow and will assist as needed with dc plans/needs. Adult Probation Officer: Feli Armstrong DCPIA - Discharge Planning Initial Assessment Updated by [email or web address]: Feli Armstrong on 03/01/20 9:41 pm * Is the patient Alert and Oriented? Yes * How many steps to enter\exit or inside your home? * PCP [facility] * Pharmacy [facility] * Preadmission Environment Home with Family * ADLs Independent * Equipment None * List name and contact numbers for known caregivers / representatives who currently or will assist patient after discharge: LOUIE MARTIN - [phone] * Verbal permission to speak to the caregivers and representatives has been obtained from the patient. Yes * Community resources currently utilized None * Additional services required to return to the preadmission environment? No * Can the patient safely return to the preadmission environment? Yes * Has this patient been hospitalized within the prior 30 days at any hospital? No Patient Name: KACI MARTIN Page [phone] at 2144 All edits/amendments must be made on the electronic document DICTATION DATE: 03/01/202142 FUND RAISER: EDEL 03/01/202142 RPT#: [id number] DC DATE:02/27/20 STATUS: DIS IN [facility] [address] [place] [address] END OF REPORT
== END 2020-02-27 16:18 | disposition home or self-care (01) | DRG 236 ==
LOC: D.SDCHOLD 08:30 → D.CVICU 02-22 05:25 → D.SDCHOLD 02-22 07:30 → D.CVICU 02-22 11:08
PROVIDERS: ADMIT Thoracic Surgery (Cardiothoracic Vascular Surgery); ATTEND Thoracic Surgery (Cardiothoracic Vascular Surgery)
PROC: 021109W Bypass Coronary Artery, Two Arteries from Aorta with Autologous Venous Tissue, Open Approach (ICD-10-PCS; 2020-02-22)
PROC: 06BP4ZZ Excision of Right Saphenous Vein, Percutaneous Endoscopic Approach (ICD-10-PCS; 2020-02-22)
PROC: 0210099 Bypass Coronary Artery, One Artery from Left Internal Mammary with Autologous Venous Tissue, Open Approach (ICD-10-PCS; principal; 2020-02-22 07:30)
DX: I25.110 Atherosclerotic heart disease of native coronary artery with unstable angina pectoris (principal); T82.855A Stenosis of coronary artery stent, initial encounter; I48.91 Unspecified atrial fibrillation

== ENCOUNTER → 2020-03-20 12:03 | Outpatient (CLI) | payer OTHER ==
[2020-02-26 11:13] VITALS: BMI 25.7
[~2020-03-20 12:03] MED LIST changes: +AMIODARONE HCL200 MG PO; +PERCOCET 5-3251 TAB PO; +PLAVIX75 MG PO
[2020-03-20 12:38] LABS: BASOPHILS 0.5 % (0-2); EOSINOPHILS 2.9 % (0-7); HEMATOCRIT 40.1 % (36.0-48.0); HEMOGLOBIN 12.6 g/dL (12-16); IMMATURE GRANULOCYTES 0.5 % (0-5); LYMPHOCYTES 13.5 % (15-50); MCH 28.1 pg (26.0-34.0); MCHC 31.4 g/dL (31.0-37.0); MCV 89.3 fL (80.0-100.0); MEAN PLATELET VOLUME 8.6 fL (7.4-10.4); MONOCYTES 8.5 % (2-11); NEUTROPHILS 74.1 % (40-80); RBC 4.49 10x6/uL (4.00-5.40); RDW 13.4 % (11.5-14.5); WBC 6.5 10x3/uL (4.8-10.8)
[2020-03-20 12:40] LABS: PLATELET COUNT 448 10x3/uL (130-400)
[2020-03-20 12:53] LABS: CALC OSMOLALITY 279 mosm/kg (275-300); CALCIUM 8.8 mg/dL (8.5-10.1); CARBON DIOXIDE 26.2 mmol/L (21.0-32.0); CHLORIDE - SERUM 104 mmol/L (98-107); CREATININE - SERUM 0.8 mg/dL (0.6-1.3); GLUCOSE 102 mg/dL (74-106); POTASSIUM - SERUM 4.2 mmol/L (3.5-5.1); SODIUM 140 mmol/L (136-145); UREA NITROGEN 15 mg/dL (7-18); eGFR NON AFRICAN AMERICAN 79 mL/min (90-120)
== END | disposition home or self-care (01) ==
LOC: D.LAB 12:03
PROVIDERS: ATTEND Thoracic Surgery (Cardiothoracic Vascular Surgery)
DX: Z95.1 Presence of aortocoronary bypass graft (principal)